=== PATIENT | female | born 2000 | race Caucasian/White ===

== ENCOUNTER 2019-07-09 22:09 | Emergency (ER) | payer OTHER ==
[~2019-07-09] VITALS: Ht 175.2 cm; Wt 68.0 kg
[~2019-07-09 22:09] MED LIST: ANTIBIOTIC O500 U/GM TP; AUGMENTIN ES-6100 ML PO; CLARITIN10 MG PO; FOCALIN XR10 MG PO; NAPROSYN500 MG PO
== END 2019-07-10 00:32 | disposition home or self-care (01) ==
LOC: ED 22:09
DX: S61.212A Laceration without foreign body of right middle finger without damage to nail, initial encounter (principal); Z79.899 Other long term (current) drug therapy; Z79.2 Long term (current) use of antibiotics; W26.8XXA Contact with other sharp object(s), not elsewhere classified, initial encounter; Y93.89 Activity, other specified; Y92.69 Other specified industrial and construction area as the place of occurrence of the external cause; Y99.8 Other external cause status

== ENCOUNTER 2022-06-06 07:42 | Emergency (ER) | payer OTHER ==
[~2022-06-06] VITALS: Wt 84.4 kg
[2022-06-06] MEDS ORDERED: AMOX-CLAV 875-1 EACH PO (08:31)
== END 2022-06-06 08:53 ==
LOC: ED 07:42
DX: S61.211A Laceration without foreign body of left index finger without damage to nail, initial encounter (principal); F17.200 Nicotine dependence, unspecified, uncomplicated; W45.8XXA Other foreign body or object entering through skin, initial encounter; Y93.89 Activity, other specified; Y92.89 Other specified places as the place of occurrence of the external cause; Y99.8 Other external cause status

== ENCOUNTER 2023-02-06 07:20 | Emergency (ER) | payer OTHER ==
[~2023-02-06] VITALS: Ht 175.2 cm; Wt 83.9 kg
[~2023-02-06 07:20] MED LIST changes: +AMOX-CLAV 875-1 EACH PO
[2023-02-06] MEDS ORDERED: ZITHROMAX250 MG PO (07:40)
== END 2023-02-06 07:50 | disposition home or self-care (01) ==
LOC: ED 07:20
DX: J06.9 Acute upper respiratory infection, unspecified (principal); H92.01 Otalgia, right ear; F90.9 Attention-deficit hyperactivity disorder, unspecified type

== ENCOUNTER 2023-05-23 20:50 | Emergency (ER) | payer OTHER ==
[~2023-05-23] VITALS: Ht 175.2 cm; Wt 79.4 kg
[~2023-05-23 20:50] MED LIST changes: +ZITHROMAX250 MG PO
[2023-05-23] MEDS ORDERED: ONDANSETRON4 MG SL (23:05)
== END 2023-05-23 23:22 | disposition home or self-care (01) ==
LOC: ED 20:50
DX: S06.0XAA Concussion with loss of consciousness status unknown, initial encounter (principal); M25.519 Pain in unspecified shoulder; R11.0 Nausea; Z98.890 Other specified postprocedural states; W22.8XXA Striking against or struck by other objects, initial encounter; Y93.89 Activity, other specified; Y92.009 Unspecified place in unspecified non-institutional (private) residence as the place of occurrence of the external cause; Y99.8 Other external cause status

== ENCOUNTER 2024-05-13 15:22 | Emergency (ER) | payer OTHER ==
[~2024-05-13] VITALS: Ht 175.2 cm; Wt 84.8 kg
[~2024-05-13 15:22] MED LIST changes: +ONDANSETRON4 MG SL
[2024-05-13] MEDS ORDERED: DOCUSATE SODIUM 100 MG/10 ML UDC OT ONE (16:15)
[2024-05-13] MEDS ORDERED: OFLOXACIN 10 ML10 M2 OT (17:20)
[2024-05-13] MEDS ORDERED: AMOX-CLAV 875-1 EACH PO (17:20)
[2024-05-13] MEDS ORDERED: OFLOXACIN 0.3% 5 ML BOTTLE OT ONE (17:25)
[2024-05-13] MEDS ORDERED: Amoxicillin/Clavulanate Pota 875 MG TAB PO ONE (17:25)
== END 2024-05-13 17:24 | disposition home or self-care (01) ==
LOC: ED 15:22
DX: H61.21 Impacted cerumen, right ear (principal)